=== PATIENT | female | born 1995 | race Caucasian/White ===

== ENCOUNTER 2018-05-25 15:05 | Emergency (ER) | payer OTHER ==
[~2018-05-25] VITALS: Ht 180.3 cm; Wt 96.0 kg
[2018-05-25 15:25] VITALS: BP 150/90
[2018-05-25] MEDS ORDERED: ACETAMINOPHEN 500 MG TABLET ONE (16:15)
[2018-05-25] MEDS ORDERED: ACETAMINOPHEN 500 MG TABLET PO ONE (16:30)
[2018-05-25 16:49] LABS: CULTURE INDICATED? YES; MICROSCOPIC INDICATED
== END 2018-05-25 18:32 | disposition home or self-care (01) ==
LOC: ED 18:20
DX: S46.911A Strain of unspecified muscle, fascia and tendon at shoulder and upper arm level, right arm, initial encounter (principal); S16.1XXA Strain of muscle, fascia and tendon at neck level, initial encounter; S29.012A Strain of muscle and tendon of back wall of thorax, initial encounter; S21.90XA Unspecified open wound of unspecified part of thorax, initial encounter; S39.012A Strain of muscle, fascia and tendon of lower back, initial encounter; S76.011A Strain of muscle, fascia and tendon of right hip, initial encounter; S09.8XXA Other specified injuries of head, initial encounter; V49.59XA Passenger injured in collision with other motor vehicles in traffic accident, initial encounter; Y93.89 Activity, other specified; Y99.8 Other external cause status; Y92.410 Unspecified street and highway as the place of occurrence of the external cause
CPT/HCPCS: 70450; 71045; 72072; 72110; 72125; 81001; 81025; 87077; 87086; 99285